=== PATIENT | male | born 1955 | race Caucasian/White ===

== ENCOUNTER 2022-10-13 11:18 | Outpatient (CLI) | payer MEDICARE, SELFPAY ==
--- NOTE | 2022-10-13 11:38 | ECG_ITS ---
Measurements Intervals [place] Rate: 74 P: 78 WI: 165 QRS: -18 QRSD: 105 T: 52 QT: 375 QTc: 418 Interpretive Statements SINUS RHYTHM INCOMPLETE RIGHT BUNDLE BRANCH BLOCK DELAYED PRECORDIAL R/S TRANSITION BASELINE ARTIFACT- I, II, III, AVR, AVL, AVF BORDERLINE ECG NO PREVIOUS ECG AVAILABLE FOR COMPARISON Electronically Signed On 10-13-2022 12:34:09 CDT by Go Ladd D.O.
[2022-10-13 12:01] LABS: Basophils Absolute Auto 0.1 K/mm3 (0.0-0.1); Basophils Percent Auto 0.6 % (0.2-1.2); Eosinophils Absolute Auto 0.2 K/mm3 (0-0.3); Eosinophils Percent Auto 1.9 % (0-4.4); Hemoglobin 15.7 g/dL (14.0-18.0); Immature Granulocyte Absolute 0.03 K/mm3 (0.00-0.031); Immature Granulocyte Percent A 0.3 % (0-0.5); Lymphocytes Absolute Auto 1.87 K/mm3 (0.9-3.2); Lymphocytes Percent Auto 19.3 % (18.3-44.2); Mean Corpuscular HGB Conc 34.1 g/dl (32-36); Mean Corpuscular Hemoglobin 32.4 pg (26-34); Mean Platelet Volume 10.2 fl (7.4-10.4); Monocytes Absolute Auto 0.7 K/mm3 (0.1-0.6); Monocytes Percent Auto 7.1 % (2.6-8.5); Neutrophils Absolute Auto 6.8 K/mm3 (1.3-6.7); Neutrophils Percent Auto 70.8 % (45.5-73.1); Platelet Count Result 252 k/mm3 (150-375); Red Blood Count 4.84 M/mm3 (4.6-6.20); Red Cell Distribution Width 12.3 % (11.5-14.5); White Blood Count 9.7 K/mm3 (4.5-10.0)
[2022-10-13 12:16] LABS: Anion Gap 7 mmol/L (8-16); Blood Urea Nitrogen 9 mg/dL (9-20); Calcium 8.9 mg/dL (8.4-10.2); Carbon Dioxide 26 mmol/L (22-30); Chloride 102 mmol/L (98-107); Estimated Glomerular Filt Rate > 60; Glucose 96 mg/dL (65-110); Potassium 4.5 mmol/L (3.4-5.0); Sodium 135 mmol/L (137-145)
== END 2022-10-13 11:19 | disposition home or self-care (01) ==
PROVIDERS: Visit Provider Neurological Surgery
DX: M47.816 Spondylosis without myelopathy or radiculopathy, lumbar region (principal); Z01.818 Encounter for other preprocedural examination; I45.10 Unspecified right bundle-branch block
CPT/HCPCS: 36415; 80048; 85025; 86850; 86900; 86901; 93005

== ENCOUNTER 2022-10-21 11:25 | Inpatient (IN) | payer MEDICARE, SELFPAY ==
--- NOTE | 2022-10-11 14:48 | PC.NURSE ---
Report to the Outpatient Waiting Room, entrance under the green pavilion located off [facility], at time _0600 on date ___10/21/22____. Planned Procedure Time: _0730 . Time changes happen often and if your time is changed the preop area will call you the afternoon before. - You and your visitor will be asked to self-screen and do not enter if you have any COVID symptoms. - Only one visitor is requested with a max of two and NO children visitors are allowed at this time. - The patient visitor may be requested to leave or wait in car when not with patient due to distancing restrictions. - A mask is optional within the hospital at this time. Patients may have clear liquids (water, carbonated beverages, clear teas, apple juice) until 3 hours prior to surgery with a maximum of 20 ounces. - No food from midnight until time of surgery - Infants may have breast milk until 4 hours before surgery, formula 6 hours prior to surgery. - Children will be allowed to drink immediately following surgery. If applicable, please bring a bottle or sippy cup to assist with drinking. Juice, water, soda, and popsicles are readily available. For infants on formula, please bring formula the day of surgery. Pacifiers are allowed. Take the following medications with a SIP of water the morning of surgery: ___NONE DO NOT STOP ANY OF YOUR OTHER PRESCRIPTION MEDICATIONS PRIOR TO SURGERY ?EXCEPT THE FOLLOWING Medications to discontinue per physician ____ALL VITAMINS/SUPPLEMENTS 3 DAYS PRE OP . LAST DOSE 10/17/22 Please no make-up, nail telugu, hairspray, perfume, deodorant, or body powder the day of surgery. No jewelry (including any body piercings) or valuables the day of surgery, leave them at home. Please take a shower or bath the night before, or the morning of, surgery with an antibacterial soap. Wear comfortable, loose fitting clothing. Children are encouraged to wear pajamas. - Jewelry must be removed prior to entering the operating room. Rings and piercings that are not removed may be cut off. - The hospital will not accept responsibility for valuables. - Please leave all valuables, including medications, at home the day of surgery. If you are going home after surgery, a licensed yard driver must drive you home. - NO public transportation without another adult if you receive anesthesia. - We recommend that an adult stay with you for 24 hours following discharge. - We also recommend that you do not drive, make important decision, drink alcoholic beverages, or take any drugs that were not prescribed by your health care provider for at least 24 hours after your discharge time. Follow any additional instructions given to you from your surgeon. If you or anyone in your household have experienced Covid symptoms in the past week, please notify your surgeon or the nurse liaison at the phone number below for possible testing. Telephone instructions given to __PATIENT and asked if any additional questions and then verbalized understanding. Patient advised to call surgeon office or pre surgery nurse liaison [phone] if any additional questions.
[2022-10-11 15:02] VITALS: BMI 23.2
--- NOTE | 2022-10-20 13:26 | WPDANESEPPF ---
Anes - Initial Pre Proc Eval Procedure: Operation Date: 10/21/22 07:30 Proposed Procedures p L4-5 Posterior Lumbar Interbody Fusion and Revision of Posterior Lateral New Age Instrumentation - Casa Bridges MD Date/Time: 10/20/22 13:26 Surgeon: Casa Bridges MD Pre Op Diagnosis: Lumbar Spondylosis, Stenosis of Lumbar Spine Patient Data Age: 67 Gender: M Height: 1.73 m Weight: 69.4 kg Allergies Allergy/AdvReac Type Severity Reaction Status Date / Time amoxicillin Allergy Diarrhea Verified 10/21/22 06:13 Home Medications Medication Instructions Recorded Confirmed Type Lactobacillus 1 cap PO DAILY 10/11/22 10/21/22 History acidophilus-Bifidobac.animalis 2.5 billion cell capsule (Daily Probiotic) ascorbic acid (vitamin C) 1,000 mg 1 g PO DAILY 10/11/22 10/21/22 History tablet cetirizine 10 mg tablet (Zyrtec) 10 mg PO DAILY PRN Allergy Symptoms 10/11/22 10/21/22 History cholecalciferol (vitamin D3) 125 125 mcg PO DAILY 10/11/22 10/21/22 History mcg (5,000 unit) tablet cyclobenzaprine 10 mg tablet 10 mg PO TID PRN Muscle Spasm 10/11/22 10/11/22 History montelukast 10 mg tablet 10 mg PO PRN PRN Allergy Symptoms 10/11/22 10/11/22 History multivitamin 1 tablet PO DAILY 10/11/22 10/21/22 History rizatriptan 10 mg tablet 10 mg PO PRN PRN Migraine Headache 10/11/22 10/11/22 History tamsulosin 0.4 mg capsule 0.4 mg PO PRN PRN URGENCY 10/11/22 10/11/22 History zinc 50 mg capsule 50 mg PO DAILY 10/11/22 10/21/22 History Patient hx anesthesia problems: none Family hx anesthesia problems: none Results Review: All pre-operative results and documents have been reviewed as part of the pre-operative evaluation. [facility] Past Medical History Medical History Back pain Osteoarthritis Smoker Social History Social History Smoking packs per day: 0.75 Smoking cigarettes per day: 15.0 Years smoked: 20 Smoking pack-years: 15.00 Smoking status: Current every day smoker Tobacco type: cigarettes Alcohol intake: current Drinks per week: 7 Alcohol use details: RUM AND FREYA Living arrangements: with family Spiritual care concerns: No Anes - Eval Final PreProcedure Day of Procedure 10/20/22 13:26 Patient weight: normal Heart: regular rate and rhythm Lungs: clear to auscultation and normal air movement Airway: Mallampati scale class II Neurological: alert and oriented Last oral intake: >/= 8 hours ASA classification: II Emergent: no Anesthetic plan: proceed Anesthesia type and monitoring: general ETT Results Review: All pre-operative results and documents have been reviewed as part of the pre-operative evaluation. Informed Consent: The patient's anesthetic plan and its attendant risks and benefits were discussed with the patient/family/POA. Questions were solicited and answers provided to the satisfaction of the patient/family/POA.
[2022-10-21] VITALS (17 sets, daily range): BP systolic 104–144; BP diastolic 55–83; PULSE 66–85; RESP 12–20; TEMP 36.1–36.9; O2SAT 94–100; BMI 23.8
--- NOTE | ~2022-10-21 | XR_ITS ---
EXAMINATION: XR fluoroscopy no charge DATE: 10/21/2022 10:37 INDICATION: L4-L5 interbody fusion revision TECHNIQUE: 3 fluoroscopic images of the lower lumbar spine were obtained during procedure performed gisela Bridges. Radiologist was not present for the imaging or procedure. The amount of fluoroscopy t sherly used during this procedure was 0.1 minutes. COMPARISON: None. FINDINGS: Soft tissue retractors and lap sponges project over a lucent surgical defect posterior to lower lumba r spine. An initial image there is a L5-S1 combined noncemented anterior and posterior spinal fusion with interbody bone graft cages and bilateral vertical alok and pedicle screw fixation. The endplates are indistinct suggesting the L5-S1 fusion is chronic. There is extension of the fusion to involve L4 with additional interbody bone graft cage at L4-L5 and placement of new pedicle screws at L4. IMPRESSION: 1. Fluoroscopy utilized during lower lumbar neurosurgical procedure with likely extension to L4 of a prior L5-S1 combined instrumented anterior and posterior spinal fusion. See procedure note for furthe r detail. Reviewed, dictated and finalized at location A. IMPRESSION: 1. Fluoroscopy utilized during lower lumbar neurosurgical procedure with likely extension to L4 of a prior L5-S1 combined instrumented anterior and posterior spinal fusion. See procedure note for further detail.
[2022-10-21] MEDS: LACTATED RINGERS 1,000 ML 30 ML IV CONT ×3 (06:51→11:15)
--- NOTE | 2022-10-21 07:39 | PM.IMHP ---
H&P: HPI History of Present Illness Date/Time: 10/21/22 07:39 Chief Complaint: Back and leg pain Narrative: Foster is a 67-year-old gentleman with back and leg pain related to junctional issues above her previous L5-S1 fusion who presents for L4-5 posterior lumbar interbody fusion. He has not changed appreciably since we last saw him. He does not have specific muscle group weakness or dermatomal numbness. He is not having bowel or bladder difficulty. Review of Systems Review of Systems: Patient denies shortness of breath, cough, fever, chills, nausea, vomiting, weight loss, waking, chest pain, dysuria. He has back and leg pain as above. His review of systems otherwise negative on 12 systems except as noted elsewhere. [facility] Past Medical History Medical History Back pain Osteoarthritis Smoker Social History Social History Smoking packs per day: 0.75 Smoking cigarettes per day: 15.0 Years smoked: 20 Smoking pack-years: 15.00 Smoking status: Current every day smoker Tobacco type: cigarettes Alcohol intake: current Drinks per week: 7 Alcohol use details: RUST [employer] FREYA Living arrangements: with family Spiritual care concerns: No Meds Home Medications and Allergies Home Medications Medication Instructions Recorded Confirmed Type Lactobacillus 1 cap PO DAILY 10/11/22 10/21/22 History acidophilus-Bifidobac.animalis 2.5 billion cell capsule (Daily Probiotic) ascorbic acid (vitamin C) 1,000 mg 1 g PO DAILY 10/11/22 10/21/22 History tablet cetirizine 10 mg tablet (Zyrtec) 10 mg PO DAILY PRN Allergy Symptoms 10/11/22 10/21/22 History cholecalciferol (vitamin D3) 125 125 mcg PO DAILY 10/11/22 10/21/22 History mcg (5,000 unit) tablet cyclobenzaprine 10 mg tablet 10 mg PO TID PRN Muscle Spasm 10/11/22 10/11/22 History montelukast 10 mg tablet 10 mg PO PRN PRN Allergy Symptoms 10/11/22 10/11/22 History multivitamin 1 tablet PO DAILY 10/11/22 10/21/22 History rizatriptan 10 mg tablet 10 mg PO PRN PRN Migraine Headache 10/11/22 10/11/22 History tamsulosin 0.4 mg capsule 0.4 mg PO PRN PRN URGENCY 10/11/22 10/11/22 History zinc 50 mg capsule 50 mg PO DAILY 10/11/22 10/21/22 History Allergies Allergy/AdvReac Type Severity Reaction Status Date / Time amoxicillin Allergy Diarrhea Verified 10/21/22 06:13 Vital Signs Vital Signs - 24 hr 10/21/22 06:22 Temperature 98.2 F Pulse Rate 70 Respiratory Rate 16 Blood Pressure 144/83 H Pulse Oximetry 100 Oxygen Delivery Room Air Exam Narrative: Strength is 5/5 in all muscle groups of the bilateral lower extremities. Sensation is intact to light touch throughout the lower extremities. Breathing is nonlabored. He speaks in complete sentences without difficulty. Regular rate and rhythm Assessment and Plan Assessment and plan (1) Lumbar stenosis: Code(s): M48.061 - Spinal stenosis, lumbar region without neurogenic claudication Status: Acute Assessment and Plan: Foster is a 67-year-old gentleman with back and leg pain related to junctional issues that presents now for L4-5 posterior lumbar interbody fusion. I described to him again that operation, its risks, potential benefits, the operative and postoperative course in detail answered all his questions personally. He indicates understanding and elects to proceed with that operation.
--- NOTE | 2022-10-21 07:41 | WPDHPUPDATE1 ---
History and Physical Update Update Date/Time: 10/21/22 07:41 History and Physical has been reviewed, including an updated exam of the patient. There are NO changes in the patient's condition. Risks, benefits, and alternatives have been discussed and questions answered. Patient agrees to proceed with procedure.
[2022-10-21] MEDS: ceFAZolin 2 GM/D5W 50 ML 2 GM/50 ML BAG IVPB (07:50)
[2022-10-21] MEDS: LIDO 1%/EPINEPHRINE 1:100,000 20 ML VIAL INFILTRATE (08:46)
[2022-10-21] MEDS: HEMOSTATIC MATRIX (SURGIFLO with THROMBIN) KIT 1 KIT XX (08:47)
--- NOTE | 2022-10-21 11:09 | W.PM.PROC2 ---
Procedure Note - Detailed Date of Procedure 10/21/22 Pre-op Diagnosis Lumbar Spondylosis, Stenosis of Lumbar Spine Post-op Diagnosis Same Procedure Performed L4-5 complete laminectomy and bilateral facetectomy, L4-5 complete diskectomy and interbody arthrodesis utilizing titanium interbody devices and local autograft, removal of posterior instrumentation L5-S1, L4 5 and S1 pedicle screw instrumentation Surgeon Casa Bridges MD Development Technician [place] Anesthesia General Description of Procedure Foster was brought to the operating room in the supine position, was sedated, intubated and placed under general anesthesia in routine fashion. He was then turned into the prone position on a Jef frame. The area of operation on his back was examined, marked for incision, prepped and draped in routine sterile fashion. Incision was marked over the L4 through S1 spinous processes in the midline. This area was injected with 0.5% lidocaine with [id number] epinephrine. Intravenous antibiotics given prior to incision. Incision was made with a 10 blade scalpel down to the lumbodorsal fascia. A subperiosteal dissection of the muscle soft tissue away from the spinous process and lamina at L4 through S1 was performed with a subperiosteal elevator and Bovie cautery. A verifying x-rays obtained to verify the level of operation. At the L4-5 level the L4 spinous process was removed with a Michelle rongeur., Kerrison punches curved curettes and a Jessicaell rongeur were used to remove lamina in the midline and to the soft contents of the canal were encountered. A Midas Enrique drill was used to resect the pars bilaterally at L4. The inferior articular process and facet of L4 given be removed bilaterally. These muscle spinous processes were stripped free of soft tissue and morselized for later use as interbody autograft. Kerrison punches and curved curettes were used to define a plane with the dura and removed bone and ligament flush with the pedicle and through the foramina widely decompressing exiting nerve roots. With the thecal sac retracted and protected the disc space was entered bilaterally using 11 blade scalpel. Scrapers very sizes, curettes a Veress configurations, pituitary rongeur and a rasp were used to remove as much cartilaginous endplate and disc material as possible down to bleeding cortical flat surfaces on the opposing bones. The disc space was incised and 9 mm interbody devices were chosen and filled with local autograft bone. The disc space was likewise filled with local autograft bone medially and anteriorly. The interbody devices were then placed with 2-3 mm countersink within the disc space bilaterally. Pedicle screw instrumentation was performed at L4 by observing and palpating the pedicle a hole was made in the superior process above the pedicle using a Midas Enrique drill. The pedicle was then cannulated with a pedicle probe, checked for continuity with the ball probe, tapped with a 5.5 mm tap and a 6.5 x 50 mm screw was placed into each L4 pedicle. At L5 and S1 the caps, rods and screws were removed using the appropriate drivers. A 6.5 mm tap was placed down each of these holes and then a 7.5 x 50 mm screw was placed in the each of these pedicles on each side. Rods were placed in the screw heads on either side and secured in position using the caps that purpose. These were definitively tightened with a torque and anti torque device. The wound was then copiously irrigated with bacitracin irrigation all bleeding was stopped with bipolar and Bovie cautery and Gelfoam thrombin powder. A medium Hemovac drain was left in the subfascial position buried out to the inferior right of the incision. The wound was then closed in layered fashion with 2-0 Vicryl interrupted sutures in the lumbodorsal fascia and Kerri's layer. 3-0 Vicryl buried interrupted sutures were placed in the dermis and the skin was closed with a running 4-0 Monocryl subcuticular stitch and dressed with
[2022-10-21] MEDS: fentaNYL CITRATE INJ (*CRX) 100 MCG/2 ML VIAL 25 MCG IV PUSH ×8 (11:21→11:54)
[2022-10-21] MEDS: HYDROmorphone HCL INJ (*CRX) 1 MG/ML SYR 0.5 MG IV PUSH ×3 (12:06→12:35)
--- NOTE | 2022-10-21 13:18 | ADMGEN ---
This patient, Foster Shea, was admitted to 2 Medical Room 249-01. Patient/family oriented to hospital policies and general routines including ID bracelet, bed and alarms, visiting hours, pain management, procedures, bathroom and other care routines, personal items, smoking policy, room service/diet, and visiting hours. Information on how to activate the Rapid Response Team has been discussed. Patient/Family are encouraged to report perceived risks to care and to ask questions if they do not understand what they are told or what they should do.
[2022-10-21] MEDS: HYDROcodone/acetaminophen (*CRX) 10-325 MG TABLET 1 TAB PO (13:49)
[2022-10-21] MEDS: ceFAZolin 1 GM/NS 50 ML 1 GM/50 ML BAG IVPB (15:53)
[2022-10-21] MEDS: ONDANSETRON INJ 4 MG/2 ML VIAL IV PUSH (20:14)
[2022-10-21] MEDS: DOCUSATE SODIUM 100 MG CAPSULE PO (20:14)
[2022-10-22] MEDS: ceFAZolin 1 GM/NS 50 ML 1 GM/50 ML BAG IVPB ×2 (00:17→07:55)
[2022-10-22 06:00] VITALS: BP 94/50; PULSE 75; RESP 14; TEMP 36.6; O2SAT 98
[2022-10-22] MEDS: ONDANSETRON INJ 4 MG/2 ML VIAL IV PUSH (06:21)
--- NOTE | 2022-10-22 07:10 | WPDANESPN ---
Anes - Prog Note Post-Op Date/Time: 10/22/22 07:10 Cardiovascular status: normal Respiratory status: normal Airway patency: baseline Mental status: baseline Post-Op hydration status: normal Vital Signs: Last Vital Signs Temp 36.6 C 10/22/22 06:00 Pulse 75 10/22/22 06:00 Resp 14 10/22/22 06:00 BP 94/50 L 10/22/22 06:00 Pulse Ox 98 10/22/22 06:00 O2 Del Method Room Air 10/21/22 20:00 O2 Flow Rate 6 10/21/22 11:35 Pain Score (VAS): 2 I/O: Intake & Output 10/21/22 10/21/22 10/22/22 15:59 23:59 07:59 Intake Total 2550 730 350 Output Total 190 820 520 Balance 2360 -90 -170 Post-procedural complaints: none Patient Feedback: Patient satisfied with anesthetic care.
[2022-10-22] MEDS: DOCUSATE SODIUM 100 MG CAPSULE PO (07:56)
[2022-10-22 09:41] VITALS: BP 114/60; PULSE 74; RESP 18; TEMP 36.9; O2SAT 100
[2022-10-22] MEDS: HYDROcodone/acetaminophen (*CRX) 5-325 MG TABLET 1 TAB PO (10:39)
--- NOTE | 2022-10-22 12:22 | PC.NURSE ---
On 10/22/22, the student, [Lacey Bertrand], provided care and completed [facility] documentation on this patient. I have reviewed the student's documentation and agree with the findings.
--- NOTE | 2022-10-22 12:49 | PC.NURSE ---
On 10/22/22, the student, [Daysi Barrera], provided care and completed [facility] documentation on this patient. I have reviewed the student's documentation and agree with the findings.
--- NOTE | 2022-11-15 09:07 | PM.DS ---
DS: Admitting Diagnosis Discharge Date 10/22/22 Admitting Diagnosis junctional stenosis DS: Discharge Diagnosis Discharge Diagnosis Plan same DS: Summary Hospital Course Hospital Course: the patient was taken to the operating room on 10/21/2022 where an L4-5 posterior lumbar interbody fusion was performed without complication. The patient went to the floor postoperatively. On postoperative day 1 his Hernandez catheter and drain removed. Later on postoperative day 1 he was eating, ambulating and his pain was under control with by mouth pain medicine. His wound remained clean dry and intact. He was afebrile stable vital signs. He was therefore allowed to be discharged home. Status at Discharge Cognitive/behavioral status at discharge: Improved Functional status at discharge: independent ambulation Time Spent with Patient Time attestation: Total time spent providing and/or coordinating discharge services: Exam Narrative: neurologically intact Discharge Plan Discharge Attending physician on discharge: Casa Bridges Consulting providers: Sagar Perales Discharging Clinician: Casa Bridges Anticipated Discharge Date/Time: 10/22/22 12:42 Patient Disposition: Home, Self-Care Activity: may shower Diet: as tolerated Wound Care Instructions: follow printed instructions Discharge Instructions: INSTRUCTIONS AFTER YOUR LUMBAR LAMINECTOMY/DECOMPRESSION/FORAMINOTOMY/DISCECTOMY Incisions may be closed with either: Steri-strips (let them wear off on their own). Surgical glue (let it peel off on its own). Sutures or lu (call the office for an appointment to have these removed). Keep the incision dry for the first three days after surgery. Never apply ointments or lotions to the incision. The incision should be checked daily. Notify the office if there is drainage, redness, or if you have fever with a temperature of over 100 degrees. After the third postop day, it is okay to shower. Let soap and water run over your incision. No soaking in a tub, hot tub, or pool for at least one month. You are encouraged to walk as much as comfortable, with assistance as needed. For example, it may be beneficial to walk short distances hourly during the waking hours and gradually increase walking during your recovery period. Fatigue can be common. Avoid any bending, heavy lifting, twisting movements. You have an dpowd-jl-bol-pound lift restriction until further advised by your physician (A gallon of milk weighs eight pounds). Make frequent position changes, avoiding long periods of sitting. Try not to sit more than 30 minutes at a time. You may engage in sexual activity in two weeks as tolerated. No housework, especially vacuuming, making beds, or doing laundry until seen in the office. You may walk stairs carefully. Minimize car rides for two weeks. Driving can usually be resumed within two weeks; however, you may not drive at that time if still taking pain medications. Once you are discharged from the hospital, please call the office to set up your postop appointment. The physician may order pain medication and/or muscle relaxers. As time goes by, you should require less of these. Always take your medication as ordered, and only if needed. If you take more than prescribed, it will not be refilled early. If you feel you require narcotic medication refill, kindly give the office a 72-hour notice. No refills are given over the weekend. Anti-inflammatory meds (like Ibuprofen, Aleve, Advil, Motrin) may be used if approved by your surgeon. Over the counter Tylenol products may be used but use caution mixing Tylenol with your pain medication. The common pain pills include Acetaminophen as an ingredient, you could cause liver damage if taking too much. Tylenol and Acetaminophen are the same drug. Resume your usual diet. Constipation is a common problem postop, especially when taking narcotic pain medications. Y
== END 2022-10-22 13:30 | disposition home or self-care (01) | DRG 460 ==
LOC: ANH2MED 12:33
PROVIDERS: Admitting Provider Neurological Surgery; Visit Provider Neurological Surgery
PROC: 0SG00AJ Fusion of Lumbar Vertebral Joint with Interbody Fusion Device, Posterior Approach, Anterior Column, Open Approach (ICD-10-PCS; CPT 22612; principal; 2022-10-21 07:30)
DX: M47.896 Other spondylosis, lumbar region (principal); M48.061 Spinal stenosis, lumbar region without neurogenic claudication; F17.210 Nicotine dependence, cigarettes, uncomplicated
CPT/HCPCS: 97116; 97161; 97165; 97530; 97535; 99199; A9270; C1713; J0690; J1100; J1170; J2250; J2405; J2704; J3010; J7120